=== PATIENT | male | born 1970 | race Caucasian/White ===

== ENCOUNTER 2024-07-23 23:11 | Emergency (ER) | payer OTHER, SELFPAY ==
[2024-07-23 23:13] VITALS: BP 184/100
[2024-07-24 01:20] VITALS: BP 181/95
[2024-07-24] MEDS: NSS 1000 IV (01:30)
[2024-07-24] MEDS: BENADRYL 25 MG IV (01:37)
[2024-07-24] MEDS: COMPAZINE 10 MG IV (01:37)
--- NOTE | 2024-07-24 01:42 | ED.GENMED ---
History of Present Illness
General
Chief Complaint: Headache
Source: patient
Exam Limitations: none
Time Seen by Provider: 07/24/24 01:17
History of Present Illness
History of Present Illness:
54-year-old male presents with gradual onset headache that starts in the back of his head and radiates towards the front. He notes generalized unwell sensation increasing vague chest discomfort shortness of breath and fatigue. He checked his blood
pressure is elevated at home. He does not take any medication for blood pressure. He is healthy otherwise. He does not describe severe sudden onset headache
Past History
Past History
ED Past Medical History: Asthma and Other (OA)
Social History
Tobacco: Non-smoker
Phy Exam
Physical Exam
Physical Exam:
General: Well-appearing male no acute respiratory distress
HEENT: Normocephalic pupils equal round reactive to light
Heart: Regular rate and rhythm
Lungs: Clear no wheeze
Neurologic exam: Alert and oriented x 3 no facial asymmetry. Finger-nose intact.
Ext: No cyanosis
Skin: warm, no rash
Course
Orders/Labs/Results
Orders:
Orders
07/23/24 23:21
ECG [Electrocardiogram (*1)] Urgent
Reason for Study: Hypertension, Benign
Other Reason for Exam: headache
07/23/24 23:22
EKG- Treatment ONCE
07/24/24 01:23
CMP [Comprehensive Metabolic Panel] Urgent
Complete Blood Count/No Diff Urgent
07/24/24 01:28
Troponin I Urgent
07/24/24 01:29
0.9% Sodium Chloride 1000 ml [Nss] 1,000 ml IV BOLUS
Diphenhydramine [Benadryl] 25 mg IV NOW STA
Prochlorperazine [Compazine] 10 mg IV NOW STA
07/24/24 01:30
0.9% Sodium Chloride 1000 ml [Nss] 1,000 ml IV BOLUS
07/24/24 02:20
Ketorolac [Toradol] 15 mg IV NOW STA
07/24/24 02:21
Ketorolac [Toradol] 15 mg .ROUTE .STK-MED ONE
Abnormal Lab Results
07/24/24
01:23
BUN 23 H mg/dl
(9-20)
Glucose 108 H mg/dl
(70-99)
07/24/24 01:23
07/24/24 01:23
Vital Signs
Initial and Last Documented VS:
Initial Vital Signs
Temp Pulse Resp BP Pulse Ox
97.8 F 64 20 184/100 100
07/23/24 23:13 07/23/24 23:13 07/23/24 23:13 07/23/24 23:13 07/23/24 23:13
Last Documented Vital Signs
Temp Pulse Resp BP Pulse Ox
97.8 F 62 12 179/98 100
07/23/24 23:13 07/24/24 02:06 07/24/24 02:06 07/24/24 02:06 07/24/24 02:06
MDM/Problems Addressed
Differential Diagnosis Includes:
Gradual onset headache. Slightly elevated blood pressure readings. Do not suspect subarachnoid hemorrhage as he looks well and it was not sudden in onset.
Having he was here 4 years ago for similar symptoms. Suspect possible migraine headache. Fluids ordered labs ordered Compazine and Benadryl ordered
Considered CT but not indicated at this time. No fever to suggest infectious source.
*Critical Care Note
Total Time (30-74mins, 75-104mins- exclusive of procedures): Not Applicable
Update Note
Update Note:
Patient noted some improvement of his headache. Blood pressure still modestly elevated. No prior history of hypertension. Normal neurologic exam. I suspect migraine. Patient wishes to go home. Will prescribe limited supply of amlodipine with
close follow-up with family doctor for blood pressure recheck
ED Attending Note
-
Portions of this chart may have been created with voice recognition software.� Occasional wrong word or��sound alike� substitutions may have occurred due to the inherent limitations of voice recognition software.
Discharge Plan
Departure
Patient Disposition: Home (Routine Discharge)
Date of Disposition: 07/24/24
Time of Disposition: 03:02
Patient with high blood pressure during this ER visit?: No
Discharge Problem:
Headache
Instructions: Migraines (DC), BLOOD PRESSURE
Prescriptions:
New
amlodipine 5 mg tablet
5 mg PO DAILY Qty: 14 0RF
No Action
metoclopramide HCl 10 MG tablet
10 mg PO Q6HPRN PRN (Reason: DEL ROSARIO) Qty: 8 0RF
metaxalone [Skelaxin] 800 MG tablet
800 mg PO TIDPRN PRN (Reason: neck pain/tension [place] ROSARIO) Qty: 10 0RF
Referrals:
Navneet Hauser MD [Family Provider] -
Activity Restrictions/Additional Instructions:
Rest. Take blood pressure medicine daily as prescribed. Follow-up with your doctor for further evaluation. Return if needed
Interventions
Interventions:
*Risk Screen - Suicide Last Done: 07/23/24 23:13
*General Assessment Last Done: 07/24/24 02:32
*Neglect/Abuse Screening Last Done: 07/23/24 23:13
ED- Fall Risk Assessment Last Done: 07/24/24 02:35
*ED COVID-19 Vaccine History Last Done: 07/24/24 02:34
ED- Cardiac Assessment Last Done: 07/24/24 01:44
ED- Neurological Assessment Last Done: 07/24/24 01:31
ED- Pulmonary Assessment Last Done: 07/24/24 01:44
Discharge Date and Time
Print Language: BULGARIAN
[2024-07-24 01:45] LABS: Hematocrit 43.5 % (39.0-52.0); Mean Corp Hgb Conc. 34.5 g/dL (33.0-37.0); Mean Corpuscular Hgb 29.8 pg (27.0-31.0); Mean Corpuscular Volume 86.3 fL (80.0-94.0); Platelet Count 325 10^3/uL (130-400); Red Blood Cell Count 5.04 10^6/uL (4.70-6.10); Red Cell Dist. Width 12.7 % (11.5-14.5); White Blood Cell Count 7.5 10^3/uL (4.8-10.8)
[2024-07-24 02:01] LABS: ALT (SGPT) 28 U/L (0-50); AST (SGOT) 26 U/L (17-59); Albumin 4.7 g/dl (3.5-5.0); Alkaline Phosphatase 45 U/L (38-126); Blood Urea Nitrogen 23 mg/dl (9-20); Calcium 9.5 mg/dl (8.4-10.2); Carbon Dioxide 25 mmol/L (22-30); Chloride 104 mmol/L (98-107); Glucose 108 mg/dl (70-99); Potassium 4.4 mmol/L (3.5-5.1); Sodium 142 mmol/L (135-145); Total Bilirubin 0.3 mg/dl (0.2-1.3); Total Protein 7.5 g/dl (6.3-8.2); eGFR > 60.00
[2024-07-24 02:05] LABS: Troponin I < 0.012 ng/ml
[2024-07-24 02:06] VITALS: BP 179/98
[2024-07-24] MEDS: TORADOL 15 MG IV (02:23)
[2024-07-24 03:36] VITALS: BP 169/88
== END 2024-07-24 06:23 | disposition home or self-care (01) ==
LOC: EMR 23:11
PROVIDERS: Physician Assistant; EMERGENCY PHYSICIAN Student in an Organized Health Care Education/Training Program; FAMILY PHYSICIAN Internal Medicine
DX: R51.9 Headache, unspecified (principal); R07.89 Other chest pain; R03.0 Elevated blood-pressure reading, without diagnosis of hypertension; J45.909 Unspecified asthma, uncomplicated
CPT/HCPCS: 96374; 96375; 96361; 99284; 80053; 84484; 85027; 93005